=== PATIENT | female | born 1975 | race Caucasian/White ===

== ENCOUNTER → 2024-07-12 15:23 | Outpatient (REF) | payer OTHER, SELFPAY | LOC: WDC 15:23 | PROVIDERS: ATTENDING PHYSICIAN Obstetrics & Gynecology; FAMILY PHYSICIAN Family Medicine | DX: Z12.31 Encounter for screening mammogram for malignant neoplasm of breast (principal) | CPT/HCPCS: 77063; 77067 ==

== ENCOUNTER → 2025-03-20 15:02 | Outpatient (REF) | payer OTHER, SELFPAY | LOC: RAD 15:02 | PROVIDERS: ATTENDING PHYSICIAN Family Medicine; FAMILY PHYSICIAN Family Medicine | DX: M79.604 Pain in right leg (principal); M54.50 Low back pain, unspecified | CPT/HCPCS: 72110; 93971 ==